=== PATIENT | male | born 1990 | race Caucasian/White ===

== ENCOUNTER 2020-04-10 14:58 | Emergency (ER) | payer SELFPAY ==
[~2020-04-10] VITALS: Ht 185.4 cm; Wt 69.9 kg
[2020-04-10 15:08] VITALS: BP 130/73; Ht 185.4 cm; Wt 69.9 kg
== END 2020-04-10 16:03 | disposition home or self-care (01) ==
LOC: ED 14:58
DX: S62.396A Other fracture of fifth metacarpal bone, right hand, initial encounter for closed fracture (principal); W22.8XXA Striking against or struck by other objects, initial encounter; Y93.89 Activity, other specified; Y92.89 Other specified places as the place of occurrence of the external cause; Y99.8 Other external cause status
CPT/HCPCS: A4570; J1885